=== PATIENT | male | born 1985 | race Caucasian/White ===

== ENCOUNTER 2022-01-08 10:57 | Outpatient (CLI) | payer MEDICAID, SELFPAY ==
[2022-01-08 11:49] LABS: Erythrocyte Sedimentation Rate 3 mm/hr (0-20)
[2022-01-08 12:15] LABS: AST(SGOT) 21 U/L (15-37); Alanine Aminotransfer ALT/SGPT 35 U/L (16-61); Albumin, Serum 3.9 g/dL (3.2-5.0); Alkaline Phosphatase 86 U/L (45-117); Bilirubin, Direct 0.11 mg/dL (0.00-0.30); CRP < 2.90 mg/L (0.0-3.0); Globulin 3.8 g/dL (2.2-4.2); Protein, Total 7.7 g/dL (6.4-8.2)
[2022-01-09 12:09] LABS: Anti-Centromere B Ab <0.2 AI (0.0-0.9); Anti-Chromatin 0.2 AI (0.0-0.9); Anti-Jo <0.2 AI (0.0-0.9); Anti-Scleroderma-70 AB <0.2 AI (0.0-0.9); RNP Ab <0.2 AI (0.0-0.9); SJOGREN'S Anti-SS-A test < 0.2 AI (0.0-0.9); SJOGREN'S Anti-SS-B test < 0.2 AI (0.0-0.9); Smith Ab <0.2 AI (0.0-0.9)
[2022-01-09 14:28] LABS: Anti-dsDNA Ab 2 IU/mL (0-9)
[2022-01-13 00:07] LABS: Endomysial Antibody IgA Negative (Negative); Immunoglobulin A 162 mg/dL (90-386); Immunoglobulin E 65 IU/mL (6-495); Immunoglobulin G 831 mg/dL (603-1613)
[2022-01-13 09:50] LABS: Immunoglobulin M 75 mg/dL (20-172); t-Transglutaminase IgA <2 U/mL (0-3)
== END 2022-01-08 23:59 | disposition home or self-care (01) ==
PROVIDERS: Visit Provider Nurse Practitioner Adult Health
DX: R19.7 Diarrhea, unspecified (principal); K92.1 Melena; R10.9 Unspecified abdominal pain
CPT/HCPCS: 36415; 80076; 82784; 82785; 83516; 85652; 86140; 86225; 86235; 86255

== ENCOUNTER 2022-03-06 10:46 | Day surgery (SDC) | payer MEDICAID, SELFPAY ==
[2022-03-06 11:17] VITALS: BP 138/88; PULSE 78; RESP 18; TEMP 36.3; O2SAT 100; BMI 31.3
[2022-03-06] MEDS: Lactated Ringers 1,000 ML 15 ML IV (11:25)
--- NOTE | 2022-03-06 12:00 | IMM_PTH ---
PATIENT: EDGARDO RIVERO LOC: EN U#:[id number] AGE/SX: 36/M ROOM: RE03/06/[address]: Dr. Erasmo Putnam DO : 1985 BED: DIS: 03/06/2022 SPEC #: [id number] RECD: 03/07/22 09:55 STATUS: ANSON REKristie #: [id number] STEPHANIE: 03/06/22 12:[address]: Erasmo Putnam DEPT: IMMUNOHISTOCHEMISTRY RECD BY: Leyda Vergara ENTERED: 03/07/22 09:56 SP TYPE: IMMUNO OT DR: No Primary Care Phys Tissues: B - Stomach, NOS C - Stomach, NOS Procedures: H Pylori (initial) PHYSICIAN & INSTITUTION [place] [id number] SPECIMEN INFORMATION: Tissue Source: B ? Gastric body biopsy, C ? Lesser curvature biopsy Clinical Info: Abdominal pain, hematochezia, diarrhea, history colonic polyp Specimen Number: [id number] B & C CPT code: 64498 x2 METHODOLOGY: Deparaffinized sections of prefer/formalin-fixed tissue or PAP/DQ stained slides are incubated with monoclonal/polyclonal antibodies/oligonucleotide probes. Localization is made via biotin free immunoperoxidase method. Appropriate controls are performed and reacted as expected. Results on target cell population are indicated in the following table: RESULTS: ANTIBODY / CLONE RESULT Block B H Pylori (polyclonal) negative Block C H Pylori (polyclonal) negative These tests were developed and their performance characteristics determined by [facility]. They may not have been cleared or approved by the U.S. Food and Drug Administration. The FDA has determined that such clearance or approval is not necessary. The above immunohistochemical/dualISH markers are ordered and reviewed by the Pathologist. INTERPRETATION: B. Gastric body, biopsy: Negative for Helicobacter pylori organisms. C. Lesser curvature, biopsy: Negative for Helicobacter pylori organisms. SJ:jasmina 03/09/2022
--- NOTE | 2022-03-06 12:00 | COLBX_PTH ---
PATIENT: EDGARDO RIVERO LOC: EN U#:[id number] AGE/SX: 36/M ROOM: RE03/06/[address]: Dr. Erasmo Putnam DO : 1985 BED: DIS: 03/06/2022 SPEC #: [id number] RECD: 03/06/22 13:48 STATUS: ANSON REKristie #: [id number] STEPHANIE: 03/06/22 12:[address]: Erasmo Putnam DEPT: SURGICAL PATHOLOGY RECD BY: Rafael Whitfield ENTERED: 03/07/22 09:46 SP TYPE: COLON BX OTHR DR: Tatiana Primary Care Phys Tissues: A - Duodenum, NOS B - Gastric mucous membrane C - Gastric mucous membrane D - Esophagus, NOS E - Ileum, NOS F - Sigmoid colon biopsy G - Sigmoid colon biopsy Procedures: Special Stain Group II Surgery Specimen Level IV Alcian Blue/PAS (control) HEADER OPERATION: Colonoscopy, EGD ([facility] [place]) PRE-OP DIAGNOSIS: Abdominal pain, hematochezia, diarrhea, history of colonic polyp TISSUE SUBMITTED: A ? Duodenum biopsy, B ? Gastric body biopsy, C ? Lesser curvature biopsy, D ? Distal esophagus biopsy, E ? Terminal ileum biopsy, F ? Sigmoid ulcer biopsy, G ? Sigmoid polyp biopsy MICROSCOPIC DIAGNOSIS A. Duodenum, biopsy: Fragments of duodenal mucosa, no pathologic diagnosis. B. Gastric body, biopsy: Moderate gastritis. See microscopic description and comment. C. Lesser curvature, biopsy: Moderate gastritis. See microscopic description and comment. D. Distal esophagus, biopsy: Fragments of gastroesophageal mucosa with mild chronic inflammation. Intestinal metaplasia (goblet cell metaplasia) not identified. See comment. E. Terminal ileum, biopsy: Fragments of small intestinal mucosa, no pathologic diagnosis. F. Sigmoid ulcer, biopsy: Fragments of colonic mucosa, no pathologic diagnosis. G. Sigmoid polyp, biopsy: Hyperplastic polyp. SJ:rg 03/08/2022 COMMENT B & C. The results of immunohistochemistry for Helicobacter pylori will be reported separately ([id number]). D. Alcian blue/PAS stain with matched control is used in the evaluation of the specimen. The specimen predominantly consists of gastric mucosa. MICROSCOPIC DESCRIPTION Slides are reviewed. B & C. The specimen shows fragments of gastric mucosa with chronic inflammatory cell infiltrates in the lamina propria consisting of lymphocytes and plasma cells, consistent with moderate chronic gastritis. GROSS DESCRIPTION A - Received in fixative is one container labeled with the patient's name and designated duodenum biopsy. The specimen consists of multiple irregular fragments of light curtis soft tissue that in aggregate measure 1 x 1 x 0.1 cm. The specimen is totally submitted in one cassette. B - Received in fixative is one container labeled with the patient's name and designated gastric body biopsy. The specimen consists of multiple irregular fragments of light curtis soft tissue that in aggregate measure 0.5 x 0.5 x 0.1 cm. The specimen is totally submitted in one cassette. C - Received in fixative is one container labeled with the patient's name and designated lesser curvature biopsy. The specimen consists of one irregular fragment of light curtis soft tissue that measures 0.6 x 0.2 x 0.1 cm. The specimen is totally submitted in one cassette. D - Received in fixative is one container labeled with the patient's name and designated distal esophagus biopsy. The specimen consists of two irregular fragments of light curtis soft tissue that in aggregate measure 0.6 x 0.5 x 0.1 cm. The specimen is totally submitted in one cassette. E - Received in fixative is one container labeled with the patient's name and designated terminal ileum biopsy. The specimen consists of two irregular fragments of light curtis soft tissue that in aggregate measure 0.5 x 0.3 x 0.1 cm. The specimen is totally submitted in one cassette. F - Received in fixative is one container labeled with the patient's name and designated sigmoid ulcer biopsy. The specimen consists of multiple irregular fragments of light curtis soft tissue that in aggregate measure 0.7 x 0.3 x 0.1 cm. The specimen is totally submitted in one cassette. G - Received in fixative is one container labeled with the patient's name and designated sigmoid polyp biopsy. The specimen consists of one irregular fragment of light curtis soft tissue that measures 0.3 x 0.3 x 0.1 cm. The specimen is totally submitted in one cassette. / SJ:rg 03/07/2022 TC:3 [facility]: [id number] x7, [id number]
--- NOTE | 2022-03-06 12:41 | HP.PCM_ITS ---
History and Physical Date of Admission: 03/06/22 EDGARDO RIVERO, is a 36 M who presents to the office today for 3 yrs of stomach issues. He put off medical care due to lack of insurance. He had a stroke in November 2021, since then he is on medication for hypertension and hyperlipidemia. He has sour stomach every morning, nausea, CP. Then coughs and sometimes vomits which gives him relief. No sore throat or hoarseness. Has bloating and abd discomfort. Has to have BM right after meals, usually diarrhea. Blood per rectum, can be bright red or dark, occurs after he gets upper abd pain which refers to lowerback; occurs approx once a month, lasts 4-5 days. Pain is upper abd, pain is pressure in lower back. He was on pantoprazole 20 mg daily, only partial relief GI cocktail does give him temporary relief Colonoscopy 4 yrs ago, polyp removed, was told to repeat colonoscopy in 1-2 yrs. He eats a healthy diet. He had a stroke in 11/2021, was hospitalized at [facility], no sequelae. Now on med for HTN and hyperlipidemia. Denies DM. ROS Const Constitutional: Positive for fatigue; No anorexia, body ache, chills, excessive sweating, fever(s), frequent falls, headache(s), decreased energy, malaise, night sweats, snoring, weakness, weight change, sleep problems, abnormal sleep pattern, change in appetite or other Eyes Eyes: Positive for blurry vision and eye pain; No change in vision, double vision, irritation, discharge, vision loss, dry eyes, bulging eyes, floaters, visual disturbances, Light sensitivity, spots in vision, tunnel vision or other ENT ENT: No abnormal hearing, ear or mastoid pain, ear discharge, ear pressure, hearing loss, tinnitus, dizziness/vertigo, balance problems, nosebleed/epistaxis, nasal congestion, nasal obstruction, nose pain, sinus pressure, sinus pain, nasal discharge, post nasal drip, headache(s), facial pain, dental pain, dry mouth, difficulty swallowing, bad breath, hoarseness, lip swelling, mouth lesions, mouth pain, neck pain, sore throat, tongue swelling, throat swelling or other Resp Respiratory: No cough, change in phlegm color, chest congestion, excessive phlegm production, hemoptysis, pain on inspiration, shortness of breath, pain with cough, snoring, stridor, wheezing or other Cardio Cardiology: Positive for chest pain at rest; No chest pain with exertion, leg pain with exertion, excessive sweating, shortness of breath, dyspnea on exertion, generalized swelling, irregular heart rhythm, lightheadedness, orthopnea, radiating jaw, neck or arm pain, fast heart rate, slow heart rate, palpitations, difficulty breathing or other Gastro GI: Positive for abdominal pain, bloating, diarrhea, heartburn, Blood in stool and vomiting; No belching, change in bowel habits, change in stool character, coffee ground emesis, constipation, cramping, difficulty swallowing, feeling full early, excessive flatus, incontinent of stools, Vomiting blood/hematemesis, loose stools, Black,tarry stools, nausea/dyspepsia, pain with swallowing or other Genitourinary Male: No difficulty urinating, burning urination, painful urination, urinary incontinence, urinary frequency, urinary urgency, urinary hesitancy, urinary retention, blood in urine, Frequent nighttime urination/ nocturia, post void dribbling, suprapubic fullness, side pain, sexual problems, genital lesions, genital itching, erectile dysfunction, penile discharge, difficulty with ejaculations, blood in semen, scrotal swelling, testicle lump, testicle pain or other Musc Musculoskeletal: Positive for numbness and tingling; No abnormal gait, neck pain, restless legs or leg pain with exertion Skin Skin: No acne, hair loss in leg, change in hair, nail changes, boil, change in skin color, dry skin, redness, excessive hair growth, yellowing of the eye, lesions, itchy eyes, rash, skin pain, skin ulcer, sores, skin swelling, wounds or other Neuro Neurology: Positive for numbness and tingling; No abnormal gait, abnormal hearing, abnormal movements, abnormal speech, behavioral changes, confusion, unsteady gait/balance, dizziness, weakness, frequent falls, headache(s), lack of coordination, loss of vision, memory loss, visual disturbances, restless legs, fainting, tremor(s), Increased tone in limbs, paralysis, seizures or other Psych Psychiatric: No abnormal sleep pattern, No lack of enjoyment, Positive for anxiety, No behavioral changes, No change in appetite, No confusion, No depression, No difficulty concentrating, No hopelessness, No irritability, No memory loss, No mood swings, No panic attacks, No paranoia, No Thoughts of harming yourself/Others, No hallucinations, No Behavioral Problems, No Compulsive Behavior, No hyperactivity, No inattentiveness, No obsessions/compulsions, No Temper Tantrums, No suicidal ideation and No other Endo Endocrine: Positive for fatigue; No change in body appearance, cold intolerance, excessive sweating, flushing, heat intolerance, increased thirst/drinking, increased hunger, increased urine leakage, weight change or other Aller/Imm Allergy/Immunologic: No itchy eyes, lip swelling, throat swelling, tongue swelling or wheezing Exam Const General: cooperative, healthy appearing, comfortable, no acute distress, well developed and well groomed HENMT Head: normal to inspection Eyes Conjunctivae: conjunctivae normal Sclera: sclerae normal Neck Neck: normal visual inspection and supple Resp Effort & Inspection: normal respiratory effort GI Inspection: normal to inspection Auscultation: normal bowel sounds Palpation: soft and tender (epigastric) Assessment and Plan Assessment and Plan (1) Abdominal pain: Status: Acute (2) Hematochezia: Status: Acute (3) Diarrhea: Status: Acute (4) Hx of colonic polyp: Status: Inactive Orders: Orders: CRP Today R10.9, K92.1, R19.7 Erythrocyte Sed Rate Today R10.9, K92.1, R19.7 Celiac Disease Profile Today R10.9, K92.1, R19.7 Immunoglobulin E Today R10.9, K92.1, R19.7 Immunoglobulin G Today R10.9, K92.1, R19.7 Immunoglobulin M Today R10.9, K92.1, R19.7 Liver Profile Today R10.9, K92.1, R19.7 Calprotectin, Stool Today R10.9, K92.1, R19.7 Ova and Parasites [id number] Today R10.9, K92.1, R19.7 CDIFF (PCR) Today R10.9, K92.1, R19.7 ENTERIC PATHOGEN PANEL STOOL Today R10.9, K92.1, R19.7 Stool Lactoferrin/WBC Today R10.9, K92.1, R19.7 Giardia Lamblia, Stool EIA Today R10.9, K92.1, R19.7 Plan: 37 yr old male with several years of sour stomach, nausea and vomiting, chest pain, reflux, diarrhea, dumping, hematochezia. Hx of colon polyp. Differential includes autoimmune disorder, IBD, microscopic colitis, celiac, reflux disease, motility disorder. Blood and stool tests order. Rx pantoprazole 40 mg daily He is scheduled for EGD and colonoscopy 03/06/22, f/u 2 wks after that Plan Details Other Medications: New: pantoprazole 40 mg PO DAILY 90 tabs 0RF I have re-examined the patient. There are no clinical changes since date of exam.
--- NOTE | 2022-03-06 13:33 | OP.EGD_ITS ---
Patient Name: Richard Morrison Procedure Date: 03/06/2022 12:39 PM Date of : 1985 Age: 36 Procedure: Upper GI endoscopy Indications: Epigastric abdominal pain, Heartburn Providers: Erasmo Putnam DO Medicines: Sedation Required Anesthesia Staff Assistance Patient Profile: This is a 36 year old male. Refer to note in patient chart for documentation of history and physical. Patient has symptoms of acute epigastric abdominal pain. He is status post colonoscopy for polyp removal within the past five years. Complications: No immediate complications. Procedure: Pre-Anesthesia Assessment: - Prior to the procedure, a History and Physical was performed, and patient medications and allergies were reviewed. The patient is competent. The risks and benefits of the procedure and the sedation options and risks were discussed with the patient. All questions were answered and informed consent was obtained. Patient identification and proposed procedure were verified by the physician in the pre-procedure area. Mental Status Examination: alert and oriented. Airway Examination: normal oropharyngeal airway and neck mobility. Respiratory Examination: clear to auscultation. CV Examination: normal. Prophylactic Antibiotics: The patient does not require prophylactic antibiotics. Prior Anticoagulants: The patient has taken no previous anticoagulant or antiplatelet agents. ASA Grade Assessment: II - A patient with mild systemic disease. After reviewing the risks and benefits, the patient was deemed in satisfactory condition to undergo the procedure. The anesthesia plan was to use moderate sedation / analgesia (conscious sedation). Immediately prior to administration of medications, the patient was re-assessed for adequacy to receive sedatives. The heart rate, respiratory rate, oxygen saturations, blood pressure, adequacy of pulmonary ventilation, and response to care were monitored throughout the procedure. The physical status of the patient was re-assessed after the procedure. After obtaining informed consent, the endoscope was passed under direct vision. Throughout the procedure, the patient's blood pressure, pulse, and oxygen saturations were monitored continuously. The pediatric colonoscope was introduced through the mouth, and advanced to the second part of duodenum. The upper GI endoscopy was accomplished without difficulty. The patient tolerated the procedure well. Moderate Sedation: Moderate (conscious) sedation was personally administered by an anesthesia professional. The following parameters were monitored: oxygen saturation, heart rate, blood pressure, respiratory rate, EKG, adequacy of pulmonary ventilation, and response to care. Total physician intraservice time was 15 minutes. Scope In: 12:53:08 PM Scope Out: 1:01:24 PM Total Procedure Duration Time 0 hours 8 minutes 16 seconds Findings: LA Grade A (one or more mucosal breaks less than 5 mm, not extending between tops of 2 mucosal folds) esophagitis with no bleeding was found 38 to 40 cm from the incisors. Biopsies were taken with a cold forceps for histology. Verification of patient identification for the specimen was done. Estimated blood loss was minimal. The entire examined stomach was normal. Biopsies were taken with a cold forceps for histology. Verification of patient identification for the specimen was done. Estimated blood loss was minimal. Mildly erythematous mucosa without active bleeding and with no stigmata of bleeding was found in the first portion of the duodenum. Biopsies were taken with a cold forceps for histology. Verification of patient identification for the specimen was done. Estimated blood loss was minimal. A medium-sized hiatal hernia was present. Impression: - LA Grade A reflux esophagitis. Biopsied. - Normal stomach. Biopsied. - Erythematous duodenopathy. Biopsied. Recommendation: - Discharge patient to home. - Resume previous diet. - Continue present medications. - Await pathology results. - Repeat upper endoscopy in 1 year for surveillance. - Return to GI office. Procedure Code(s): --- Professional --- 40765, Esophagogastroduodenoscopy, flexible, transoral; with biopsy, single or multiple CPT copyright 2017 [employer]. All rights reserved. The codes documented in this report are preliminary and upon mercantile agent review may be revised to meet current compliance requirements. Erasmo Putnam DO 03/06/2022 1:33:41 PM This report has been signed electronically. Number of Addenda: 1 Note Initiated On: 03/06/2022 12:39 PM Addendum Number: 1 Addendum Date: 08/16/2022 6:33:27 AM MAC was used as sedation for this procedure. Erasmo Putnam DO 08/16/2022 6:33:31 AM This report has been signed electronically.
[2022-03-06 13:35] VITALS: BP 126/73; BP 138/88; PULSE 88; RESP 16; TEMP 36.3; O2SAT 100
--- NOTE | 2022-03-06 13:39 | OP.COLON_ITS ---
Patient Name: Richard Morrison Procedure Date: 03/06/2022 1:05 PM Date of : 1985 Age: 36 Procedure: Colonoscopy Indications: Follow-up for history of adenomatous polyps in the colon Providers: Erasmo Putnam DO Medicines: Sedation Required Anesthesia Staff Assistance Patient Profile: This is a 36 year old male. Refer to note in patient chart for documentation of history and physical. Patient has symptoms of acute epigastric abdominal pain. He is status post colonoscopy for polyp removal within the past five years. He is status post colonoscopy for polyp removal within the past five years. Last Colonoscopy: 3 years ago. Complications: No immediate complications. Procedure: Pre-Anesthesia Assessment: - Prior to the procedure, a History and Physical was performed, and patient medications and allergies were reviewed. The patient is competent. The risks and benefits of the procedure and the sedation options and risks were discussed with the patient. All questions were answered and informed consent was obtained. Patient identification and proposed procedure were verified by the physician in the pre-procedure area. Mental Status Examination: alert and oriented. Airway Examination: normal oropharyngeal airway and neck mobility. Respiratory Examination: clear to auscultation. CV Examination: normal. Prophylactic Antibiotics: The patient does not require prophylactic antibiotics. Prior Anticoagulants: The patient has taken no previous anticoagulant or antiplatelet agents. ASA Grade Assessment: II - A patient with mild systemic disease. After reviewing the risks and benefits, the patient was deemed in satisfactory condition to undergo the procedure. The anesthesia plan was to use moderate sedation / analgesia (conscious sedation). Immediately prior to administration of medications, the patient was re-assessed for adequacy to receive sedatives. The heart rate, respiratory rate, oxygen saturations, blood pressure, adequacy of pulmonary ventilation, and response to care were monitored throughout the procedure. The physical status of the patient was re-assessed after the procedure. After I obtained informed consent, the scope was passed under direct vision. Throughout the procedure, the patient's blood pressure, pulse, and oxygen saturations were monitored continuously. The pediatric colonoscope was introduced through the anus and advanced to the terminal ileum. The colonoscopy was performed without difficulty. The patient tolerated the procedure well. The quality of the bowel preparation was good. Moderate Sedation: Moderate (conscious) sedation was administered by the endoscopy nurse and supervised by the endoscopist. The patient's oxygen saturation, heart rate, blood pressure and response to care were monitored. Total physician intraservice time was 15 minutes. Scope In: 1:04:32 PM Scope Withdrawal Time 0 hours 15 minutes 29 seconds Scope Out: 1:26:18 PM Total Procedure Duration Time 0 hours 21 minutes 46 seconds Findings: Hemorrhoids were found on perianal exam. A 5 mm polyp was found in the sigmoid colon. The polyp was sessile. The polyp was removed with a hot snare. Resection and retrieval were complete. Verification of patient identification for the specimen was done. Estimated blood loss was minimal. A single (solitary) six mm ulcer was found in the recto-sigmoid colon. No bleeding was present. Biopsies were taken with a cold forceps for histology. Verification of patient identification for the specimen was done. Estimated blood loss was minimal. A localized area of the terminal ileum was congested. Biopsies were taken with a cold forceps for histology. Verification of patient identification for the specimen was done. Estimated blood loss was minimal. Impression: - Hemorrhoids found on perianal exam. - One 5 mm polyp in the sigmoid colon, removed with a hot snare. Resected and retrieved. - A single (solitary) ulcer in the recto-sigmoid colon. Biopsied. - Congested mucosa in the terminal ileum. Biopsied. Recommendation: - Discharge patient to home. - Resume previous diet. - Continue present medications. - Await pathology results. - Repeat colonoscopy in 3 years for surveillance based on pathology results. - Return to GI office. Procedure Code(s): --- Professional --- 58885, Colonoscopy, flexible; with removal of tumor(s), polyp(s), or other lesion(s) by snare technique 32220, 59, Colonoscopy, flexible; with biopsy, single or multiple G0500, Moderate sedation services provided by the same physician or other qualified health child day care center worker performing a gastrointestinal endoscopic service that sedation supports, requiring the presence of an independent trained observer to assist in the monitoring of the patient's level of consciousness and physiological status; initial 15 minutes of intra-service time; patient age 5 years or older (additional time may be reported with 17721, as appropriate) CPT copyright 2017 [employer]. All rights reserved. The codes documented in this report are preliminary and upon offset platemaker review may be revised to meet current compliance requirements. Erasmo Putnam DO 03/06/2022 1:38:27 PM This report has been signed electronically. Number of Addenda: 1 Note Initiated On: 03/06/2022 1:05 PM Addendum Number: 1 Addendum Date: 08/16/2022 6:33:39 AM MAC was used as sedation for this procedure. Erasmo Putnam DO 08/16/2022 6:33:45 AM This report has been signed electronically.
[2022-03-06 13:40] VITALS: BP 138/88; BP 138/96; PULSE 76; RESP 16; O2SAT 99
[2022-03-06 13:45] VITALS: BP 138/88; BP 146/100; PULSE 72; RESP 16; O2SAT 100
[2022-03-06 13:50] VITALS: BP 138/88; BP 144/90; PULSE 73; RESP 16; TEMP 36.8; O2SAT 99
[2022-03-06 14:09] VITALS: BP 138/88
== END 2022-03-06 23:59 | disposition home or self-care (01) ==
LOC: EN 10:49 → AC 10:51
PROVIDERS: Visit Provider Internal Medicine Gastroenterology
PROC: 0DJD8ZZ Inspection of Lower Intestinal Tract, Via Natural or Artificial Opening Endoscopic (ICD-10-PCS; CPT 45378; principal; 2022-03-06 11:55)
DX: K63.5 Polyp of colon (principal); K29.70 Gastritis, unspecified, without bleeding; K64.9 Unspecified hemorrhoids; K21.00 Gastro-esophageal reflux disease with esophagitis, without bleeding; I10 Essential (primary) hypertension; E78.5 Hyperlipidemia, unspecified; F17.210 Nicotine dependence, cigarettes, uncomplicated; Z79.899 Other long term (current) drug therapy; Z86.010 Personal history of colon polyps; Z86.73 Personal history of transient ischemic attack (TIA), and cerebral infarction without residual deficits
CPT/HCPCS: 45385; 45380; 43239; 87426; 88305; 88313; 88342; J7120

== ENCOUNTER → 2022-03-20 | Outpatient (CLI) | payer MEDICAID, SELFPAY ==
[2022-03-22 14:29] LABS: Giardia Lamblia, Stool EIA Negative (Negative)
[2022-03-22 17:22] LABS: Calprotectin, Stool 55 ug/g (0-120)
== END | disposition home or self-care (01) ==
LOC: LABSPEC 12:47
PROVIDERS: Referring Provider Nurse Practitioner Adult Health; Visit Provider Nurse Practitioner Adult Health
DX: R19.7 Diarrhea, unspecified (principal); K92.1 Melena; R10.9 Unspecified abdominal pain
CPT/HCPCS: 83630; 83993; 87177; 87209; 87329; 87493; 87506